=== PATIENT | male | born 1975 | race Caucasian/White ===

== ENCOUNTER 2022-02-24 08:23 | Day surgery (SDC) | payer OTHER, SELFPAY ==
[2022-02-19 15:42] LABS: CLARITY,URINE CLEAR (Clear); COLOR,URINE YELLOW (Yellow); GLUCOSE, URINE NEGATIVE (Neg); KETONES,URINE NEGATIVE (Neg); LEUKOCYTE ESTERASE ,URINE NEGATIVE (Neg); NITRITES, URINE NEGATIVE (Neg); OCCULT BLOOD,URINE NEGATIVE (Neg); PH,URINE 6.5 (4.8-8.0); PROTEIN,URINE NEGATIVE (Neg); UROBILINOGEN,URINE 0.2 E.U/dL (0.2-1.0)
[2022-02-19 15:44] LABS: BASOPHILS % (AUTO) 0.5 % (0-1); EOSINOPHILS # (AUTO) 0.1 X10'3 (0-0.9); EOSINOPHILS % (AUTO) 0.9 % (0-6); LYMPHOCYTES # (AUTO) 1.1 X10'3 (1.1-4.8); LYMPHOCYTES % (AUTO) 18.2 % (21-51); MEAN CORPUSCULAR HGB CONC 33.4 g/dL (33.0-36.5); MEAN CORPUSCULAR VOLUME 98.7 FL (78-98); MEAN PLATELET VOLUME 7.7 FL (7.4-10.4); MONOCYTES # (AUTO) 0.4 X10'3 (0-0.9); MONOCYTES % (AUTO) 6.8 % (2-12); NEUTROPHILS # (AUTO) 4.3 X10'3 (1.8-7.7); NEUTROPHILS % (AUTO) 73.6 % (42-75); PRE OP HEMATOCRIT 47.2 % (42.0-52.0); PRE OP HEMOGLOBIN 15.8 g/dL (14.0-17.9); PRE OP PLATELET COUNT 280 X10'3 (140-440); RED BLOOD COUNT 4.78 X10'6 (4.70-6.10); RED CELL DISTRIBUTION WIDTH 13.6 % (11.5-14.5)
[2022-02-19 15:45] LABS: UA COLLECTION TYPE CLN CATCH MIDSTREAM
[2022-02-19 15:57] LABS: ALBUMIN 2.7 G/DL (3.4-5.0); ALKALINE PHOSPHATASE 59 IU/L (46-116); BLOOD UREA NITROGEN 19 MG/DL (7-18); BUN/CREATININE RATIO 17.4 (5.4-32.0); CALCIUM 7.8 MG/DL (8.5-10.1); CHLORIDE 104 MMOL/L (99-107); CREATININE 1.09 MG/DL (0.60-1.10); PRE OP ALT 43 U/L (30-65); PRE OP ANION GAP 6 (8-16); PRE OP AST 34 U/L (10-37); PRE OP BILIRUB, TOTAL 0.3 MG/DL (0.0-1.0); PRE OP GLUCOSE 96 MG/DL (70-104); PRE OP POTASSIUM 4.2 MMOL/L (3.4-5.1); PRE OP SODIUM 139 MMOL/L (135-145); TOTAL CARBON DIOXIDE 29.2 MMOL/L (24-32); TOTAL PROTEIN 5.5 G/DL (6.4-8.2); eGFR 73 ML/MIN
[~2022-02-24] VITALS: Ht 175.3 cm; Wt 76.3 kg
[2022-02-24] VITALS (10 sets, daily range): BP systolic 100–140; BP diastolic 57–87
[~2022-02-24 08:23] MED LIST: IBUP-24 PO; ceFAZolin inj. 2,000 MG in dextrose 5%-water 100 ML IV ONE; famotidine 20mg tablet PO ONE; ringers solution, lacted 1,000 ML IV SCH
[2022-02-24] MEDS ORDERED: HYDROmorphone/PF 0.2 MG/ML SYRINGE IV PRN ×2 (11:45)
[2022-02-24] MEDS ORDERED: acetaminophen 1,000mg/100ml IV 100 ML IV PRN (11:45)
[2022-02-24] MEDS ORDERED: ringers solution, lacted 1,000 ML IV SCH (11:45)
[2022-02-24] MEDS ORDERED: ketamine 50mg/5ml syringe IV PRN (11:45)
[2022-02-24] MEDS ORDERED: fentaNYL/PF 50MCG/1 ML 2ML syringe IV PRN ×2 (11:45)
[2022-02-24] MEDS ORDERED: ketorolac tromethamine 15mg/ml inj. IV ONE (11:45)
[2022-02-24] MEDS ORDERED: labetalol 20mg/4ml (5mg/ml) syringe IV PRN (11:45)
[2022-02-24] MEDS ORDERED: hydrALAZINE 20mg/ml inj. IV PRN (11:45)
[2022-02-24] MEDS ORDERED: ondansetron/PF 4mg/2ml inj IV PRN (11:45)
[2022-02-24] MEDS ORDERED: BUPIVAcaine 0.5% inj/PF 30 ML ONE (12:31)
[2022-02-24] MEDS ORDERED: dexamethasone sod phosphate 10mg/ml inj ONE (12:39)
[2022-02-24] MEDS ORDERED: sevoflurane 250ml liquid IH ONE (12:39)
[2022-02-24] MEDS ORDERED: neostigmine methylsulfate 1 MG/ML 10ml vial ONE (12:39)
[2022-02-24] MEDS ORDERED: ketorolac trometh inj. 60 MG/2 ML VIAL IM ONE (12:39)
[2022-02-24] MEDS ORDERED: fentaNYL /PF 50mcg/ml 5ml ampule ONE (12:50)
[2022-02-24] MEDS ORDERED: MIDAZolam 1 MG/ML 5ML VIAL ONE (12:50)
[2022-02-24] MEDS ORDERED: glycopyrrolate 0.2mg/ml inj ONE (12:55)
[2022-02-24] MEDS ORDERED: rocuronium 10mg/ml inj IV ONE ×2 (12:55→13:29)
[2022-02-24] MEDS ORDERED: propofol inj 20 ML IV ONE (12:55)
[2022-02-24] MEDS ORDERED: ondansetron/PF 4mg/2ml inj ONE (12:55)
[2022-02-24] MEDS ORDERED: LIDOcaine 1%/PF 5ML 10 MG/ML VIAL ONE (12:57)
[2022-02-24] MEDS ORDERED: labetalol 20mg/4ml (5mg/ml) syringe IV ONE ×2 (13:44)
[2022-02-24] MEDS ORDERED: BUPIVAcaine 0.5% W/EPI /PF 30ml vial IJ ONE (13:44)
[2022-02-24] MEDS ORDERED: BUPIVAcaine/PF 5 mg/ml 10ml ONE (15:02)
[2022-02-24] MEDS ORDERED: BUPIVACAINE liposomal/PF 13.3 MG/ML vial IM ONE (15:03)
--- NOTE | 2022-02-24 15:30 | NUR ---
Received from OR via [facility], accompanied by Anesthesiologist-DR JIMENEZ and report given by Anesthesiolgist. PT AWAKE AND VSS, DENIES PAIN, DERMABOND TO LAP SITES-CDI, PIV RUNNING
[2022-02-24] MEDS ORDERED: HYDROcodone/acetaminophen 5mg/325mg tablet PO ONE (17:05)
--- NOTE | 2022-02-24 17:30 | NUR ---
PT DOING WELL, PAIN MINIMAL TILL GETTING UP TO GET DRESSED, GIVEN 1 NORCO AFTER VOIDING FOR TRIP HOME, NO CHANGE IN ASSESSMENT, DRSG-CDI, PT GIVEN D/C INSTRUCTIONS-ALL QUESTIONS ANSWERED, TAKEN VIA W/C TO VEHICLE FOR TRANSPORT HOME
== END 2022-02-24 17:30 | disposition home or self-care (01) ==
LOC: PAS 08:23
PROVIDERS: ATTEND Surgery
DX: K40.91 Unilateral inguinal hernia, without obstruction or gangrene, recurrent (principal); Z79.899 Other long term (current) drug therapy; Z98.890 Other specified postprocedural states
CPT/HCPCS: 36415; 49651; 64488; 80053; 81003; 82948; 85025; 93005; C1758; C1781; C9290; J0131; J0690; J1100; J1885; J2250; J2405; J2704; J2710; J3010; J3490; J7030; J7060; J7120; S0020; Z7506; Z7508; Z7512; A4215; A4618